=== PATIENT | female | born 1975 | race Caucasian/White ===

== ENCOUNTER 2023-07-29 10:23 | Emergency (ER) | payer OTHER, SELFPAY ==
--- NOTE | 2023-07-29 10:27 | ED.URI ---
HPI - URI/Sore Throat General Chief Complaint: Upper Respiratory Infection Stated Complaint: sore throat Time Seen by Provider: 07/29/23 10:54 Source: patient and RN notes reviewed Mode of arrival: ambulatory Limitations: no limitations History of Present Illness HPI Narrative: 47 year female presents to the [facility] with complaints of a sore throat, postnasal drainage and congestion started Friday, 3 days ago has been taking both ibuprofen and Tylenol Denies fevers. Onset (ago): day(s) (3) Treatments prior to arrival: acetaminophen and ibuprofen Related Data Home Medications Medication Instructions Recorded Confirmed bupropion HCl 200 mg tablet,12 hr 200 mg PO BID 07/29/23 07/29/23 sustained-release clonidine HCl 0.1 mg 0.2 mg PO HS 07/29/23 07/29/23 tablet,extended release,12 hr ergocalciferol (vitamin D2) 1,250 1,250 mcg PO WE 07/29/23 07/29/23 mcg (50,000 unit) capsule gabapentin 300 mg capsule 300 mg PO HS 07/29/23 07/29/23 lisdexamfetamine 30 mg capsule 30 mg PO DAILY 07/29/23 07/29/23 (Vyvanse) venlafaxine 75 mg tablet 37.5 mg PO BID 07/29/23 07/29/23 Allergies Allergy/AdvReac Type Severity Reaction Status Date / Time cephalexin [From Keflex] Allergy Hives Verified 07/29/23 10:45 Sulfa (Sulfonamide Allergy Hives Verified 07/29/23 10:45 Antibiotics) sulfamethoxazole Allergy Hives Verified 07/29/23 10:45 [From Bactrim] trimethoprim [From Bactrim] Allergy Hives Verified 07/29/23 10:45 Review of Systems Review of Systems: All systems reviewed & are unremarkable except as noted in HPI and below Constitutional: Constitutional: Reports no additional constitutional complaints Eyes: Eyes: Reports no additional eye complaints ENT: Reports as per HPI and Reports sore throat Cardiovascular: Cardiovascular: Reports no additional cardiovascular complaints, Denies chest pain and Denies dyspnea Respiratory: Respiratory: Reports no additional respiratory complaints, Denies chest congestion, Denies cough and Denies dyspnea Gastrointestinal: Gastrointestinal: Reports no additional gastrointestinal complaints, Denies abdominal pain, Denies nausea and Denies vomiting Musculoskeletal: Musculoskeletal: Reports no additional musculoskeletal complaints Integumentary/Breasts: Skin/Breast: Reports system reviewed and no additional complaints, except as docu Neurologic: Reports system reviewed and no additional complaints, except as documented Psychiatric: Psychiatric: Reports no additional psychiatric complaints Allergic/Immunologic: Allergic/Immunologic: Reports no additional allergic/immunologic complaints PMFSH Past Medical History Medical History ADHD Anxiety and depression RLS (restless legs syndrome) Surgical History Surgical History (Updated 07/29/23 @ 10:56 by Anna Watters APRN) H/O tubal ligation Comments At the time of my signature, I reviewed and agree with the nursing past medical, surgical, social, and family history. There is no relevant family history pertinent to the patient complaint. Exam Const: General: cooperative, healthy appearing, comfortable, no acute distress, well developed, alert and well nourished Nutritional Appearance: well nourished Orientation/consciousness: patient oriented x3 Limitations: no limitations HENMT: Head: normal to inspection Ears: hearing grossly normal bilaterally, external ears normal, TM's normal bilaterally, EAC's normal, mastoids normal and no periauricular adenopathy Face/Nose/Sinus: Normal external nose present, Normal nares present, Normal nasal mucous membranes and turbinates present, normal facial exam and face symmetric Face and sinus: normal facial exam and face symmetric Mouth: Yes Normal oral and palatal mucosa present, Yes lip normal and Yes moist mucous membranes Throat: posterior oropharynx normal, uvula midline and abnormal tonsil bilateral erythema, exudates an
[2023-07-29 10:48] VITALS: BP 132/59; PULSE 92; RESP 16; TEMP 37.7; O2SAT 100
== END 2023-07-29 11:10 | disposition home or self-care (01) ==
PROVIDERS: Emergency Provider Nurse Practitioner
DX: J03.90 Acute tonsillitis, unspecified (principal); G25.81 Restless legs syndrome; F41.9 Anxiety disorder, unspecified; F32.A Depression, unspecified; F90.9 Attention-deficit hyperactivity disorder, unspecified type
CPT/HCPCS: 87081; 87880; 99213; G0463

== ENCOUNTER 2025-02-04 14:03 | Outpatient (CLI) | payer OTHER, SELFPAY ==
--- NOTE | ~2025-02-04 | MM_ITS ---
EXAMINATION: MM screening [facility] BI w sujatha HISTORY: Screening TECHNIQUE: Craniocaudal and mediolateral oblique 3-D tomosynthesis images were obtained and synthetic 2-D images were generated. CAD analysis was submitted and interpreted. COMPARISON: No prior mammogram is available for comparison at this institution. BREAST PARENCHYMAL COMPOSITION: Dense: The breasts are heterogeneously dense, which may obscure small masses FINDINGS: There is no evidence of suspicious mass, calcification, or architectural distortion to sugg est malignancy in either breast. There has been no suspicious interval change. IMPRESSION: 1. No mammographic evidence of malignancy. 2. Recommend routine screening mammography in one year. BI-RADS Category 1: Negative Reviewed, dictated and finalized at location A.
== END 2025-02-04 14:04 | disposition home or self-care (01) ==
PROVIDERS: PCP Nurse Practitioner; Visit Provider Nurse Practitioner
DX: Z12.31 Encounter for screening mammogram for malignant neoplasm of breast (principal)
CPT/HCPCS: 77063; 77067